=== PATIENT | male | born 2000 | race Caucasian/White ===

== ENCOUNTER 2021-05-31 15:06 | Emergency (ER) | payer BC, SELFPAY ==
--- NOTE | ~2021-05-31 | XR_ITS ---
EXAMINATION: XR foot RT min 3V EXAM DATE: 05/31/2021 15:53 INDICATION: Injury in pool, pain right 3-5th metatarsals/toes. Initial encounter. TECHNIQUE: Right foot dorsoplantar, lateral and oblique projections obtained and reviewed. There is no prior study for comparison. FINDINGS: Right metatarsal bones unremarkable. There are no acute fractures or dislocations identifi ed. There is no subcutaneous gas. The soft tissue is unremarkable. There are no radiopaque foreig n bodies. IMPRESSION: No acute osseous findings. Reviewed, dictated and finalized at location A. IMPRESSION: No acute osseous findings.
[2021-05-31 15:20] VITALS: BP 127/71; PULSE 51; RESP 16; TEMP 36.8; O2SAT 100
--- NOTE | 2021-05-31 16:14 | ED.LOWEXIN ---
HPI - Extremity Injury (Lower) General Chief Complaint: Extremity Injury, Lower Stated Complaint: toe injury Source: patient and RN notes reviewed Limitations: no limitations History of Present Illness HPI Narrative: The patient, previously mostly healthy with immunizations UTD, presents with foot injury. Patient states a day ago he was in a pool , lost his balance [as he was carrying someone shoulders], and he had onset of toe pain, bleeding from lac of web spaces of third and fourth digits. As the injury is a day old, discussed plan to Steri-Strip the area using Dermabond to hold the bandaging [not on the wound itself]. No bleeding now, deformity-but the area is slightly swollen Related Data Allergies Allergy/AdvReac Type Severity Reaction Status Date / Time cat dander Allergy Other Verified 05/31/21 15:25 Review of Systems Review of Systems: Narrative: General/Constitutional: No weight loss,fever Eyes: N0: Redness,discharge Ears/Nose/Throat: No: Epistaxis,ear discharge Respiratory: Denies: Hemoptysis Gastrointestinal: No Vomiting, Bleeding-rectal Skin: No Lumps, eruption Neurologic: No Focal Weakness,Sz Hematologic: Denies: Petechiae/Purpura Psychiatric: No: Suicida ideationl All Other Systems: Reviewed and Negative [facility] Family History Family History Mother Family history of malignant neoplasm Social History Social History (Updated 12/21/19 @ 14:19 by Aimee BeverlyMD) Social History: pt states that he vapes ocasionally Smoking status: Smoker, status unknown Tobacco type: e-cigarettes/vaping Alcohol intake: current Drinks per week: 10 Substance use: current Substance use type: marijuana Other substance usage details: states he may use once a week Last use: 1 week ago--reduced from heavy use 2 years ago Additional living arrangements comments: Lives with parents Additional occupation/education comments: looking for employment at the time Gender identity (if verbalized by the patient): Male Spiritual care concerns: No Agree to blood products: Yes Comments At time of signature, agree with nursing past medical, surgical, social and family history. There is no relevant family history pertinent to the presenting complaint Exam Narrative: Exam Narrative: General Appearance: Well appearing, conjunctiva clear Mouth/Throat: Normal appearing, Normal lips Supple Respiratory: Airway patent, No respiratory distress MS-footl: Nl strength (mostly intact, limited flexion/extension by pain), Tenderness (MTPJ 2?5, with mild decreased ROM), Swelling MTP J2?5 other (no anterior drawer, no collateral laxity, Skin: Warm, Dry,; ~ 3cm poorly approximated but clean webspace laceration Neurological: A&O x3, Speech clear,, Normal affect Course Vital Signs Vital signs: Vital Signs Temperature 98.2 F 05/31/21 15:20 Pulse Rate 51 L 05/31/21 15:20 Respiratory Rate 16 05/31/21 15:20 Blood Pressure 127/71 05/31/21 15:20 Pulse Oximetry 100 05/31/21 15:20 Temperature 98.2 F 05/31/21 15:20 Pulse Rate 51 L 05/31/21 15:20 Respiratory Rate 16 05/31/21 15:20 Blood Pressure 127/71 05/31/21 15:20 Pulse Oximetry 100 05/31/21 15:20 Discharge Plan Discharge Clinical Impression: Foot laceration Qualifiers: Encounter type: initial encounter Laterality: right Qualified Code(s): S91.311A - Laceration without foreign body, right foot, initial encounter Patient Disposition: Home, Self-Care Condition: Improved Instructions: Skin Adhesive Care (ED) Prescriptions: New cephalexin 500 mg capsule 1,000 mg PO Q12H 3 Days Qty: 12 RF: 0 tramadol 50 mg tablet 50 mg PO TID PRN (Reason: pain) Qty: 15 RF: 1 mupirocin 2 % ointment 1 applic TOPICAL TID Qty: 30 RF: 0 Follow-up/Referrals: UNKNOWN,DOCTOR [Primary Care Provider] - Stand Alone Forms: Work/School Release IP
== END 2021-05-31 16:24 | disposition home or self-care (01) ==
PROVIDERS: Emergency Provider Emergency Medicine
DX: S91.311A Laceration without foreign body, right foot, initial encounter (principal); X58.XXXA Exposure to other specified factors, initial encounter
CPT/HCPCS: 73630; 99213; G0463